=== PATIENT | female | born 1940 | race Caucasian/White ===

== ENCOUNTER 2017-05-08 16:49 | Emergency (ER) | payer OTHER ==
[~2017-05-08] VITALS: Ht 160 cm; Wt 74.0 kg
[2017-05-08 16:52] VITALS: TEMP 36.9; Ht 160 cm; Wt 74.0 kg
[2017-05-08] MEDS ORDERED: XYLOCAINE 1%/SOD BICARB 20 ML VIAL INFIL STA (17:02)
[2017-05-08] MEDS ORDERED: BUPIVACAINE 0.5 % 5 MG/1 ML MPF 30ML VIAL INFIL STA (17:02)
[2017-05-08] MEDS ORDERED: DIPHTHERIA/TETANUS/PERTUSSIS 0.5 ML SYR/VIAL IM. ONE (17:15)
[2017-05-08] MEDS ORDERED: CHOL20007 PO (17:30)
[2017-05-08] MEDS ORDERED: OMEG10007 PO (17:30)
[2017-05-08] MEDS ORDERED: MULT-188 PO (17:30)
[2017-05-08] MEDS ORDERED: MULT-513 PO (17:30)
[2017-05-08] MEDS ORDERED: ASCO500T3 PO (17:30)
[2017-05-08] MEDS ORDERED: CINN1CAP2 PO (17:30)
[2017-05-08] MEDS ORDERED: LYSI100010 PO (17:30)
[2017-05-08] MEDS ORDERED: GING1CAP PO (17:30)
--- NOTE | 2017-05-08 17:33 | DIAGNOSTIC IMAGING REPORT ---
R HAND MIN 3 VIEWS ROUTINE HISTORY: 76 years-old Female Struck hand with mower blade acute right hand pain status post lawnmower injury COMPARISON: None available TECHNIQUE: 3 views of the right hand FINDINGS: Moderate soft tissue swelling of the second and third digits. Traumatic partial amputation of the distal third digit at the level of the mid shaft distal phalanx with comminuted bone fragments and skin laceration seen within this distribution. Additionally, there is a subtle linear lucency involving the medial base of the second middle phalanx extending into the PIP joint suspicious for acute nondisplaced fracture. Comminuted fracture of the second distal phalanx is noted with separation of the distal fracture fragments measuring up to 5 mm. Background osteopenia. Degenerative changes are noted about the radiocarpal, intercarpal and interphalangeal joints throughout the hand. Moderate first carpometacarpal osteoarthritis. IMPRESSION: 1. Traumatic partial amputation of the distal third digit at the level of the mid shaft distal phalanx as above with comminuted bone fragments and soft tissue injury of the distal digit. 2. Subacute nondisplaced fracture involves the medial base of the second middle phalanx. 3. Comminuted fracture of the second distal phalanx The above report was generated using voice recognition software. It may contain grammatical, syntax or spelling errors. Electronically signed by: Chris Hahn M.D. 05/08/2017 5:32 PM Dictated Date/Time: 05/08/2017 5:27 PM
[2017-05-08] MEDS ORDERED: CEPHALEXIN MONOHYDRATE 250 MG CAP PO STA (18:16)
[2017-05-08] MEDS ORDERED: CEPHALEXIN 500MG HOME PACK 1 EA BTL PO STA (19:17)
[2017-05-08] MEDS ORDERED: CEPH500C PO (19:18)
--- NOTE | 2017-05-08 19:20 | EMERGENCY ROOM VISIT NOTE ---
ED Visit Note First contact with patient: 16:58 Chief Complaint: "Cut off part of right hand third digit, tip of fourth". History of Present Illness: This patient is a 76 her old female who presents to the Emergency Department via private vehicle accompanied by male for evaluation of their right third and fourth digit laceration. Patient sustained the laceration while attempting to remove a stick underneath a riding mower blade. They report a moderate amount of bleeding initially. They admit to any numbness or tingling into the distal extremity. They report no decreased range of motion of the affected digit. Patient rates her current discomfort as a 0/10. Patient's Tetanus status is not currently up-to-date. Medications: As noted below Allergies: None PMH: No pertinent SHx: Patient lives locally with family. ROS: All pertinent positive and negative review of systems are appropriately documented in the History of Present Illness. Physical Exam: VITAL SIGNS - Vital signs and nursing notes were reviewed. Stable. Hypertensive. GENERAL -76-year-old female appearing her stated age who is in no acute distress. Communicates well with provider and answers questions appropriately. SKIN - There is a 1 cm long laceration noted at the distal tip of the right fourth digit, and a macerated 2 cm plus a large amount of tissue loss at the distal tip of the right third digit. The edges gape apart with traction. No foreign bodies appreciated. Upon further examination there are no deep structures including vessel, tendon, or bony structures appreciated but suspected. There is minimal active bleeding noted. MUSCULOSKELETAL - Laceration as described above. +5/5 strength appreciated of the affected digit. Full range of motion of the affected digit. NEUROLOGIC - Spinothalamic tract was found to be intact with ability to discriminate sharp versus dull sensation. No sensory defects of the dorsal column were appreciated utilizing light touch for evaluation. VASCULAR - Capillary refill was brisk. IMAGING: R HAND MIN 3 VIEWS ROUTINE HISTORY: 76 years-old Female Struck hand with mower blade acute right hand pain status post lawnmower injury COMPARISON: None available TECHNIQUE: 3 views of the right hand FINDINGS: Moderate soft tissue swelling of the second and third digits. Traumatic partial amputation of the distal third digit at the level of the mid shaft distal phalanx with comminuted bone fragments and skin laceration seen within this distribution. Additionally, there is a subtle linear lucency involving the medial base of the second middle phalanx extending into the PIP joint suspicious for acute nondisplaced fracture. Comminuted fracture of the second distal phalanx is noted with separation of the distal fracture fragments measuring up to 5 mm. Background osteopenia. Degenerative changes are noted about the radiocarpal, intercarpal and interphalangeal joints throughout the hand. Moderate first carpometacarpal osteoarthritis. IMPRESSION: 1. Traumatic partial amputation of the distal third digit at the level of the mid shaft distal phalanx as above with comminuted bone fragments and soft tissue injury of the distal digit. 2. Subacute nondisplaced fracture involves the medial base of the second middle phalanx. 3. Comminuted fracture of the second distal phalanx The above report was generated using voice recognition software. It may contain grammatical, syntax or spelling errors. Electronically signed by: Chris Hahn M.D. 05/08/2017 5:32 PM Dictated Date/Time: 05/08/2017 5:27 PM ED Course: Patient was seen and evaluated by myself. Risks and benefits of performing primary wound closure versus no repair were discussed with the patient who verbalizes understanding. Verbal consent was obtained prior to performing the procedure. X-ray was obtained with results as above. Patient declined pain medication or anesthesia. Case was discussed with the attending physician, and subsequent only Dr. Mancilla. He notes he discussed this with her hand specialist, and it was recommended to provide the patient antibiotics, thoroughly irrigated, and bulky dressing. Patient declined IV antibiotics numerous times. She was given Keflex 500 mg by mouth as well as a short prescription. She was given her Adacel vaccination here. The wound was cleansed and prepped in the typical sterile fashion utilizing normal saline and Betadine. The wound was sterilely draped. Once proper anesthetization was established, the wound was further examined and demonstrated deep involvement which was thoroughly irrigated with normal saline and Betadine. The wound was copiously irrigated with normal saline and Betadine. The wound was approximated using 2 simple, 5-0 nylon sutures with the wound edges being well approximated at the distal tip of the right third digit. There was a fair amount that was still macerated and will need further attention tomorrow. She is to follow with orthopedic surgeon, and be nothing by mouth after midnight. She declined pain medication. Patient tolerated the procedure well. No complications were met. The wound was cleansed and dressed with a Bacitracin dressing. She is to call her office first thing tomorrow. Patient educated on worrisome symptoms for return visit to the Emergency Department. Patient discharged to home in good condition. In the evaluation and treatment of this patient, the following differential diagnoses were considered: Finger Fracture, Finger Dislocation, Finger Sprain, Finger Contusion, [place] Finger, or Mallet Finger. Medication list reviewed and she was found to be hypertensive which I believe secondary to the amputation of her fingers. Current/Historical Medications Scheduled Ascorbic Acid (Vitamin C), 1 TAB PO DAILY Cephalexin Monohydrate (Keflex), 500 MG PO QID Cholecalciferol (Vitamin D3), Unknown Dose PO DAILY Cinnamon (Cinnamon), 500 MG PO DAILY Fish Oil (Freedom-3), 1 CAP PO DAILY Rolanda (Zingiber Officinalis) (Rolanda), 1 CAP PO DAILY Lysine Hcl (Lysine), 1 TAB PO DAILY Multiple Vitamins W/ Minerals (Ocuvite), 1 TAB PO DAILY Multivitamins/Minerals (Mvi With Minerals), 1 TAB PO DAILY Allergies Coded Allergies: No Known Allergies (Unverified , 05/08/17) Vital Signs Date Time Temp Pulse Resp B/P (MAP) Pulse Ox O2 Delivery O2 Flow Rate FiO2 05/08/17 19:26 83 20 183/93 97 Room Air 05/08/17 18:43 82 18 194/92 97 Room Air 05/08/17 16:52 36.9 99 18 196/94 96 Room Air Medications Administered Medications (Trade) Dose Ordered Sig/Radha Route Start Time Stop Time Status Last Admin Dose Admin Lidocaine HCl (Buffered Lidocaine 1% Inj) 20 ml NOW STAT INFIL 05/08/17 17:02 05/08/17 17:04 DC 05/08/17 18:34 20 ML Bupivacaine HCl (Marcaine 0.5% MPF Inj) 30 ml NOW STAT INFIL 05/08/17 17:02 05/08/17 17:04 DC 05/08/17 18:34 30 ML Diphtheria/ Pertussis/Tetanus Vacc (Adacel Inj) 0.5 ml ONCE ONCE IM. 05/08/17 17:15 05/08/17 17:16 DC 05/08/17 18:35 0.5 ML Cephalexin Monohydrate (Keflex Cap) 500 mg NOW STAT PO 10/17/17 18:16 05/08/17 18:17 DC 05/08/17 18:34 500 MG Cephalexin Monohydrate (Keflex 500MG Home Pack) 1 homepack NOW STAT PO 05/08/17 19:17 05/08/17 19:18 DC 05/08/17 19:25 1 HOMEPACK Departure Information Impression Primary Impression: Laceration Additional Impression: Open fracture Dispostion Home / Self-Care Condition GOOD Prescriptions Cephalexin Monohydrate (Keflex) 500 Mg Cap 500 MG PO QID for 7 Days, #28 CAP Prov: Jaxon Harper PA-C 05/08/17 Referrals Steven Valencia M.D. (PCP) Timo Neumann MD Patient Instructions My [facility] Additional Instructions Discharge Instructions: Keflex 500mg every 6 hours. Remainder is at pharmacy You have received 2 sutures on your finger. Please keep the splint in place until you see orthopedics tomorrow. Please call Dr. Neumann's office first thing tomorrow morning 8 AM. Please let them know that he requests to see you in the office tomorrow and that you' re supposed to eat nothing after midnight for potential surgical correction of your finger. Proper wound care is essential for adequate wound healing and infection prevention. You can shower and clean the wound with soap and water. Do not scour over the wound, pat dry with a towel. Do not submerse the wound (i.e. bathe or dish wash) until the sutures have been removed. You can use an antibiotic ointment with a dressing over the wound for the next 3-4 days. After this time you may leave the wound dry and open to the air. If crust develops over the wound you can use a Q-tip to apply a 1:1 peroxide:water solution to clean the wound. Look for signs of infection of the wound including: increased pain, swelling, foul discharge, streaking, or increased temperature. If any of these are noticed you should return to the Emergency Department for further assessment and treatment. As with any laceration you may have received nerve damage to the surrounding tissues. This damage may or may not be permanent. You should keep the area covered with sunscreen for the first 6 months to 1 year when at risk for exposure to help minimize scarring. You can also use scar reducing creams or Vitamin E oil to help minimize scarring. Return to the emergency department if your symptoms worsen despite treatment course outlined above. Problem Qualifiers
[2017-05-08 19:26] VITALS: BP 183/93; PULSE 83; O2SAT 97
== END 2017-05-08 19:27 | disposition home or self-care (01) ==
LOC: C.EDB 16:52 → C.EDD 19:27
DX: S61.214A Laceration without foreign body of right ring finger without damage to nail, initial encounter (principal); S62.632B Displaced fracture of distal phalanx of right middle finger, initial encounter for open fracture; S62.652A Nondisplaced fracture of middle phalanx of right middle finger, initial encounter for closed fracture; S62.630A Displaced fracture of distal phalanx of right index finger, initial encounter for closed fracture; W28.XXXA Contact with powered lawn mower, initial encounter; Z23 Encounter for immunization